=== PATIENT | male | born 1995 | race Caucasian/White ===

== ENCOUNTER 2024-08-12 18:01 | Emergency (ER) | payer SELFPAY ==
[~2024-08-12] VITALS: Ht 177.8 cm; Wt 137.4 kg
[2024-08-12 18:24] VITALS: BP 147/103; PULSE 98; RESP 18; TEMP 98; O2SAT 97
[2024-08-12] MEDS ORDERED: CEPH-588 PO (18:57)
== END 2024-08-12 19:02 | disposition home or self-care (01) ==
LOC: MED 18:01
DX: L05.91 Pilonidal cyst without abscess (principal); Z79.899 Other long term (current) drug therapy
CPT/HCPCS: 99283